=== PATIENT | male | born 1985 | race American Indian/Alaskan Native ===

== ENCOUNTER 2019-01-15 18:37 | Emergency (ER) | payer OTHER ==
[2019-01-15 19:48] VITALS: BP 125/72
--- NOTE | 2019-01-15 22:47 | Emergency Department Report ---
- General Chief Complaint: Chest Pain Stated Complaint: CHEST PAIN WHEN COUGHING Time Seen by Provider: 01/15/19 21:55 Source: patient Mode of arrival: Ambulatory Limitations: No Limitations - History of Present Illness Initial Comments: 33-year-old -[place] male presents to the emergency room for chest pain when he coughs 1 week. Patient reports his cough is intermittent. He reports he has sharp chest pain when he coughs that is productive. Patient denies any fever chills nausea vomiting abdominal pain. Patient reports he took Tylenol 3PM and uses DayQuil about 12 PM. Patient reports that he does smoke cigarettes, has a history of bronchitis. MD Complaint: cough -: week(s) (1) Severity scale (0 -10): 10 Quality: sharp Consistency: intermittent Improves With: nothing Worsens With: other (cough) Associated Symptoms: cough Treatments Prior to Arrival: "cold medicine" - Related Data Allergies Allergy/AdvReac Type Severity Reaction Status Date / Time No Known Allergies Allergy Unverified 01/15/19 18:54 ED Review of Systems ROS: Stated complaint: CHEST PAIN WHEN COUGHING Other details as noted in HPI Comment: All other systems reviewed and negative Respiratory: cough Cardiovascular: chest pain ED Past Medical Hx - Past Medical History Previous Medical History?: No Hx Hypertension: No Hx CVA: No Hx Heart Attack/AMI: No Hx Congestive Heart Failure: No Hx Diabetes: No Hx Deep Vein Thrombosis: No Hx Pulmonary Embolism: No Hx GERD: No Hx Liver Disease: No Hx Renal Disease: No Hx of Cancer: No Hx Sickle Cell Disease: No Hx Arthritis: No Hx Headaches / Migraines: No Hx Seizures: No Hx Kidney Stones: No Hx Psychiatric Treatment: No Hx Asthma: No Hx COPD: No Hx Tuberculosis: No Hx Dementia: No Hx HIV: No - Surgical History Past Surgical History?: No Hx Coronary Stent: No Hx Open Heart Surgery: No Hx Pacemaker: No Hx Internal Defibrillator: No Hx Cholecystectomy: No Hx Appendectomy: No Hx Breast Surgery: No - Social History Smoking Status: Current Some Day Smoker Substance Use Type: Alcohol ED Physical Exam - General Limitations: No Limitations General appearance: alert, in no apparent distress - Head Head exam: Present: atraumatic, normocephalic - Eye Eye exam: Present: normal appearance - ENT ENT exam: Present: mucous membranes moist - Neck Neck exam: Present: normal inspection - Respiratory Respiratory exam: Present: normal lung sounds bilaterally. Absent: respiratory distress - Cardiovascular Cardiovascular Exam: Present: regular rate, normal rhythm. Absent: systolic murmur, diastolic murmur, rubs, gallop - GI/Abdominal GI/Abdominal exam: Present: soft, normal bowel sounds - Rectal Rectal exam: Present: deferred - Extremities Exam Extremities exam: Present: normal inspection - Back Exam Back exam: Present: normal inspection - Neurological Exam Neurological exam: Present: alert, oriented X3 - Psychiatric Psychiatric exam: Present: normal affect, normal mood - Skin Skin exam: Present: warm, dry, intact, normal color. Absent: rash ED Course Vital Signs 01/15/19 19:46 Temperature 98.0 F Pulse Rate 69 Blood Pressure 125/72 ED Medical Decision Making - Medical Decision Making Patient has been evaluated by this provider in fast track. I did not appreciate patient coughing chest exam is clear did order a chest x- ray. Patient refused x-ray. When I spoke to the patient in regards to not wanting to x-ray he then told me that he was seen a few days ago and was given a prescription for cough medication that has codeine and he is not able to take medication while working. Patient requesting cough medication that is not sedated. I informed patient that he can take [id number] Robitussin or guaifenesin. Patient verbalized understanding. Critical care attestation.: If time is entered above; I have spent that time in minutes in the direct care of this critically ill patient, excluding procedure time. ED Disposition Clinical Impression: Cough Disposition: DC-01 TO HOME OR SELFCARE Is pt being admited?: No Does the pt Need Aspirin: No Condition: Stable Instructions: Antitussive/Decongestant (By mouth) Additional Instructions: You can take [id number]-[id number] Robitussin or Mucinex or Delsym for your cough. Referrals: PALAK DE DIOS [Primary Care Provider] - 3-5 Days
== END 2019-01-15 23:30 | disposition home or self-care (01) ==
LOC: ED 18:37
DX: R07.9 Chest pain, unspecified (principal); R05 Cough; F17.200 Nicotine dependence, unspecified, uncomplicated
CPT/HCPCS: 99282